=== PATIENT | female | born 1995 | race Caucasian/White ===

== ENCOUNTER → 2016-09-08 | Outpatient (CLI) | payer OTHER ==
[~2016-09-08] MED LIST: AMOX250C3 PO; AMX875 PO; PRENTAB26 PO; ZNTT/150 PO
[2016-09-08 18:16] LABS: URINE APPEARANCE TURBID (CLEAR); URINE BILIRUBIN NEG (NEG); URINE COLOR YELLOW; URINE EPITHELIAL CELL AUTO >30 /lpf (0-5); URINE NITRITE NEG (NEG); URINE PH 7.5 (4.5-7.5); URINE SPECIFIC GRAVITY 1.018 (1.000-1.030); UROBILINOGEN NEG (NEG)
[2016-09-08 18:42] LABS: MANUAL MICROSCOPIC REQUIRED? NO; REVIEW REQ? YES
== END | disposition home or self-care (01) ==
LOC: C.LABSPEC 17:40
PROVIDERS: ATTEND Obstetrics & Gynecology
DX: O09.299 Supervision of pregnancy with other poor reproductive or obstetric history, unspecified trimester (principal)

== ENCOUNTER → 2016-09-08 | Outpatient (CLI) | payer OTHER ==
[2016-09-08 17:34] LABS: HEMATOCRIT 31.5 % (37-47)
[2016-09-08 17:37] LABS: GTGD 50 Grams
== END | disposition home or self-care (01) ==
LOC: C.LAB1850 15:38
PROVIDERS: ATTEND Obstetrics & Gynecology
DX: O09.299 Supervision of pregnancy with other poor reproductive or obstetric history, unspecified trimester (principal)

== ENCOUNTER → 2016-11-11 | Outpatient (CLI) | payer OTHER | END | disposition home or self-care (01) | LOC: C.LABSPEC 17:31 | PROVIDERS: ATTEND Obstetrics & Gynecology | DX: Z34.03 Encounter for supervision of normal first pregnancy, third trimester (principal) ==

== ENCOUNTER 2016-12-06 10:30 | Inpatient (IN) | payer OTHER ==
[~2016-12-06] VITALS: Ht 157.5 cm; Wt 68.0 kg
[2016-12-06] MEDS ORDERED: ZNTT/150 PO (11:01)
[2016-12-06] MEDS ORDERED: PRENTAB26 PO (11:01)
[2016-12-06] MEDS ORDERED: AMOX250C3 PO (11:02)
[2016-12-06 11:04] VITALS: Ht 157.5 cm; Wt 68.0 kg
[2016-12-06] MEDS ORDERED: LACTATED RINGER'S 1000ML 1,000 ML IV PRN (11:52)
[2016-12-06 13:18] LABS: HEMATOCRIT 30.9 % (37-47); MEAN CELL VOLUME 80.5 fL (80-100); MEAN CORPUSCULAR HEMOGLOBIN 25.3 pg (25-34); MEAN CORPUSCULAR HGB CONC 31.4 g/dl (32-36); PLATELET COUNT 242 K/uL (130-400); PLT ESTIMATE NORMAL; RED BLOOD COUNT 3.84 M/uL (4.2-5.4); WHITE BLOOD COUNT 11.78 K/uL (4.8-10.8)
[2016-12-06] MEDS: LACTATED RINGER'S 1000ML 1,000 ML IV SCH ×2 (13:33→17:38)
[2016-12-06] MEDS ORDERED: BUPIVACAINE 0.25% 30 ML VIAL ONE (16:40)
[2016-12-06] MEDS ORDERED: FENTANYL CITRATE INJ 50 MCG/1 ML 2 ML VIAL ONE (16:40)
[2016-12-06] MEDS ORDERED: EpHEDrine SULFATE INJ 50 MG/ML AMP ONE (16:40)
[2016-12-06] MEDS ORDERED: FENTANYL 2MCG/ML ROPIV 1.25MG/ML 100ML BAG EPI ONE (16:41)
[2016-12-06] MEDS ORDERED: NALOXONE HCL INJ 1 MG in SODIUM CHLORIDE 0.9% 1000ML 1,000 ML IV PRN (17:37)
[2016-12-06] MEDS ORDERED: LACTATED RINGER'S 1000ML 500 ML IV PRN ×2 (17:37→18:26)
[2016-12-06] MEDS ORDERED: NALOXONE HCL INJ 0.4 MG/1 ML VIAL/CARP IV PRN (17:45)
[2016-12-06] MEDS ORDERED: NALBUPHINE HCL INJ 10 MG/ML AMP IV PRN (17:45)
[2016-12-06] MEDS ORDERED: DiphenhydrAMINE HCL 50 MG/ML VIAL IV PRN (17:45)
[2016-12-06] MEDS ORDERED: FENTANYL 2MCG/ML ROPIV 1.25MG/ML 100ML BAG EPI PRN (17:45)
[2016-12-06] MEDS ORDERED: EpHEDrine SULFATE INJ 50 MG/ML AMP IV PRN (17:45)
[2016-12-06] MEDS ORDERED: OXYTOCIN 30 UNITS/500ML NSS IV PRN (18:30)
[2016-12-07] MEDS: LACTATED RINGER'S 1000ML 1,000 ML IV SCH (00:05)
[2016-12-07] MEDS ORDERED: HYDROCORTISONE ACETATE 25 MG SUPP PR PRN (00:45)
[2016-12-07] MEDS ORDERED: SUPERCREAM 0.870 % 15GM JAR EXT PRN (00:45)
[2016-12-07] MEDS ORDERED: DIPHTHERIA/TETANUS/PERTUSSIS 0.5 ML SYR/VIAL IM. ONE (00:45)
[2016-12-07] MEDS ORDERED: LANOLIN OINT EXT PRN ×2 (00:45)
[2016-12-07] MEDS ORDERED: ACETAMINOPHEN/CODEINE 300/30MG TAB PO PRN ×2 (00:45)
[2016-12-07] MEDS ORDERED: BENZOCAINE 20% AER SPR 82.5 GM CAN EXT PRN (00:45)
[2016-12-07] MEDS ORDERED: MEASLES, MUMPS & RUBELLA VIRUS VIAL SQ. ONE (00:45)
[2016-12-07] MEDS ORDERED: OXYTOCIN 30 UNITS/500ML NSS IV PRN (00:45)
[2016-12-07] MEDS ORDERED: ACETAMINOPHEN 325 MG TAB PO PRN (00:45)
--- NOTE | 2016-12-07 02:59 | DELIVERY SUMMARY ---
DATE OF OPERATION: 12/07/2016 FINDINGS: A viable female infant with Apgars of 9 and 9. Baby delivered over a midline second-degree laceration. Cord gases, cord blood samples obtained. Placenta delivered spontaneously. Laceration repaired with 4-0 Vicryl in routine fashion. Estimated blood loss was 300 mL. LABOR NOTE: The patient is a 21-year-old 2, para 0, with an EDC of 12/02/2016, at 40-plus weeks gestational age, who presented to labor and delivery initially for evaluation of decreased movement and irregular contractions. The patient states that she did not feel like the baby had been moving as much throughout the morning, so she came to labor and delivery for evaluation. The patient's blood type A positive, rubella equivocal, GBS negative, hepatitis B negative, 1-hour Glucola x2 within normal limits. Negative third trimester beta-strep culture. Upon admission, the patient was 3-4 cm dilated, 80% effaced, and 0 station. Tracing was category 1-2. The patient ambulated, then anesthesia was consulted and an epidural was placed. Upon placement of the epidural, there had been minimal cervical change. Artificial rupture of membranes with clear fluid. Intrauterine pressure catheter was placed and Pitocin was initiated per induction protocol. Over the next 6 hours, the patient progressed to full dilatation, began her second stage. She pushed for approximately 2 hours, delivering the viable female infant with description as above. Cord was clamped and cut. Cord gases, cord blood samples obtained. Placenta delivered spontaneously. Estimated blood loss 300 mL. Sponge and needle count was correct. I attest to the content of the Intraoperative Record and any orders documented therein. Any exceptio ns are noted below.
[2016-12-07 03:05] VITALS: BP 130/85; PULSE 101; TEMP 37
[2016-12-07] MEDS: IBUPROFEN 600 MG TAB PO PRN ×3 (04:10→19:40)
--- NOTE | 2016-12-07 05:41 | Anesthesia Procedure Note ---
Anesthesia Epidural Removal Nt Date & Time December 07, 2016 at 05:40 Vital Signs Pain Intensity: 2.0 Vital Signs Past 12 Hours Date Time Temp Pulse Resp B/P Pulse Ox O2 Delivery O2 Flow Rate FiO2 12/07/16 03:10 Room Air 12/07/16 03:05 37.0 101 18 130/85 Notes Mental Status: alert / awake / arousable, participated in evaluation Nausea / Vomiting: adequately controlled Pain: adequately controlled Airway Patency, RR, SpO2: stable & adequate BP & HR: stable & adequate Hydration State: stable & adequate Neuraxial Anesthesia: was administered Anesthetic Complications: no major complications apparent, pt satisfied with anesthetic care Epidural: removed without complications, with tip intact
[2016-12-07] MEDS: RANITIDINE HCL 150 MG TAB PO SCH (08:00)
[2016-12-07] MEDS ORDERED: AMOXICILLIN 250 MG CAP PO SCH (08:00)
[2016-12-07 08:05] VITALS: BP 139/89; PULSE 82; TEMP 36.6
[2016-12-07] MEDS: FERROUS SULFATE 325 MG TAB PO SCH (08:16)
[2016-12-07] MEDS: PRENATAL VITAMIN TAB PO SCH (08:16)
[2016-12-07] MEDS: DOCUSATE SODIUM 100 MG CAP PO SCH ×2 (08:16→19:40)
[2016-12-07 11:30] VITALS: BP 134/87; PULSE 80; TEMP 36.9
[2016-12-07 15:40] VITALS: BP 133/89; PULSE 87; TEMP 36.4; O2SAT 98
[2016-12-07 16:10] VITALS: O2SAT 98
[2016-12-07] MEDS ORDERED: AMX875 PO (18:26)
[2016-12-07] MEDS: AMOXICILLIN 875 MG TAB PO SCH (19:40)
[2016-12-07 19:45] VITALS: BP 133/83; PULSE 90; TEMP 36.9
[2016-12-08] VITALS: BP 124/81; PULSE 93; O2SAT 98
[2016-12-08 06:25] LABS: HEMATOCRIT 24.9 % (37-47)
--- NOTE | 2016-12-08 07:24 | Progress Note ---
Subjective December 08, 2016. Subjective conversation w/ patient, physical exam Ambulation: ambulating normally Voiding: no voiding problems Passing Gas: Yes Diet Tolerance: Regular Diet Lochia: Moderate Feeding Type: Breast Feeding Review of Systems Constitutional: No problem reported Respiratory: No problem reported Cardiac: No problem reported Breast: No problem reported Abdomen: No problem reported Female : No problem reported Objective Vital Signs Date Time Temp Pulse Resp B/P Pulse Ox O2 Delivery O2 Flow Rate FiO2 12/08/16 00:00 98 Room Air 12/08/16 00:00 93 20 124/81 Room Air 12/07/16 19:45 36.9 90 20 133/83 Room Air 12/07/16 16:10 98 Room Air 12/07/16 15:40 36.4 87 16 133/89 98 Room Air 12/07/16 11:30 36.9 80 20 134/87 Room Air 12/07/16 08:05 36.6 82 18 139/89 Room Air 12/07/16 08:05 Room Air Physical Exam General Appearance: WELL-APPEARING, NO APPARENT DISTRESS Respiratory/Chest: no respiratory distress Cardiovascular: regular rate, rhythm Abdomen: non tender, soft Fundus: Firm Extremities: normal inspection Laboratory Results Last 24 Hours Test 12/08/16 04:44 Assessment and Plan Problem List Medical Problems: (1) Complete Status: Acute Post- Day#: 1 Continue Routine Care: PPD#1. Doing well. automotive services manager has seen patient and has no concerns. Continue routine care. Patient considering going home later today.
--- NOTE | 2016-12-08 07:27 | Discharge Instructions ---
Discharge Instructions Date of Service December 08, 2016. Admission Reason for Admission: R/O Labor Discharge Discharge Diagnosis / Problem: s/p vaginal delivery Discharge Goals Goal(s): Routine recovery after delivery Activity Recommendations Activity Limitations: per Instructions/Follow-up section . Instructions / Follow-Up Instructions / Follow-Up ACTIVITY RECOMMENDATIONS: * Gradual return to full activity over the next 2-3 weeks. * No lifting - nothing heavier than baby over the next 2-3 weeks. * Do not engage in vigorous exercise, sexual activity or sports until cleared by your physician. * Do not drive or operate any motorized equipment until cleared by your physician. * You may shower/bathe daily. MEDICATIONS: For discomfort or pain, you may use Acetaminophen (Tylenol), Ibuprofen (Advil), or Naproxen (Aleve) following the package directions. For constipation you may use Colace following the package directions. BREAST CARE: If you are not breast feeding: * Wear a supportive bra 24 hours a day for one to two weeks. * Avoid stimulating your breasts and nipples as much as possible during the first few weeks after delivery. * When taking a shower, have the warm water hit your back, not breasts. * When your breasts feel full, apply ice packs. Usually three to four times a day helps ease the discomfort. * Take a mild pain medication (Tylenol / Motrin) when you are uncomfortable. If breast feeding: * Use breast milk to lubricate nipples. Lansinoh cream may be used for sore nipples. You do not need to remove cream prior to breast feeding. If using a different brand of cream, check the label for directions regarding removal of cream prior to nursing. * Wear a supportive bra. * If having problems with breasts or breast feeding, call a client insights consultant or your health care provider. EPISIOTOMY CARE: After delivery, if you have an episiotomy (stitches), the following steps will ease discomfort and aid healing. * For the first 24 hours after delivery, place ice packs next to your episiotomy to help reduce swelling. * After the first 24 hour-period, sitz baths, either portable or in the tub, are suggested. A shower with a shower arm sprayed over the episiotomy may be comforting. * Karena care should be done after each voiding and bowel movement. Squirt warm water from a plastic bottle over the perineum (region of the body between the anus and urinary opening) and pat dry. * Use Dermoplast to ease discomfort. Shake container. [place] directly over the episiotomy. Place a Tucks on a clean sanitary pad next to your episiotomy. SPECIAL CARE INSTRUCTIONS: When you are discharged from the hospital, it is important for you to follow the instructions listed below: * During the first week at home, you should be able to care for yourself and your baby. In addition, the usual light household activities are encouraged. * Limit your activities to the way you feel. Do not try to clean the house or move furniture. Be sensible. * If you actively engage in sports and have done so up until the time of your delivery, you may resume these activities as soon as you feel able. This may take up to one month or even longer. Use good judgment. * Continue to take your vitamins for at least six weeks after the of your baby. * Your diet need not be limited unless you were on a special diet before your delivery. Breast-feeding mothers need around 2500 calories per day and at least 64-80 ounces of fluid per day (8 to 10 glasses). * You should eat foods from the four major food groups. Crash diets or fad diets are to be avoided. Eating lean meats, fresh fruits and vegetables, low-fat dairy products, high fiber foods and a regular exercise program, will help you get back to your pre- weight without putting your health at risk. * Constipation is sometimes a problem after delivery. Take a mild laxative as needed. If breast feeding, Milk of Magnesia is acceptable to use. You may use a suppository or Fleets enema if no episiotomy. * A daily shower or tub bath is suggested. Be sure to thoroughly and gently dry the perineum. * A bloody vaginal discharge will usually continue until around four weeks post . A small amount of bleeding may continue for as long as six weeks. Vaginal discharge changes from the bright red bleeding after delivery to pink then brownish and finally yellowish-pink before becoming white and disappearing. * Bleeding may increase with activity. Your first period may come in 4-8 weeks. If you are breast feeding, your period may be delayed even longer. * [place] (sex) can begin whenever both you and your partner feel comfortable and do not have any form of genital infection. It is recommended that you wait at least six weeks for internal and external healing to occur. If you have questions, please talk to your health care practitioner. A condom should be used to prevent infection and . * Foreplay, gentle intercourse and lubrication is very important the first several times to prevent pain. A water-based lubricant such as K-Y jelly or Astroglide may be used. * If you have RH negative blood and your baby is RH positive, you will receive RHOGAM by injection prior to discharge. The nurse will give you a card to keep with you that has the date and place that you received RHOGAM after delivery. * During your care, you had a Rubella screen done to check for the presence of rubella antibodies in your blood. If your test was negative, you will receive a Rubella vaccine prior to discharge. This vaccine may cause a fever, soreness at the injection site and flu-like symptoms. If these symptoms persist, notify your health care practitioner. is not advised for one month after a Rubella vaccine. * Verbalizes understanding of car seat law as reviewed with patient nursing. * Car Seat hand-out given and reviewed with patient by nursing. * Shaken baby information reviewed with patient by nursing. Call you doctor if: * Heavy bleeding (saturating several pads an hour) or passing clots the size of your fist. * A fever >101 degrees F (38.3 degrees C) on two occasions four hours apart and /or chills. * Unusual pain in the pelvic or vaginal areas. * "Baby Blues" lasting longer than two weeks. If you have any questions or concerns, call your health care practitioner at . FOLLOW UP VISIT: * Please call the office at to schedule a 6 week examination. It is important you keep this appointment. It is important for you to make arrangements for either yearly or twice yearly check-ups thereafter. Current Hospital Diet Patient's current hospital diet: Regular OB Diet Discharge Diet Recommended Diet: Regular OB Diet Pending Studies Studies pending at discharge: no Medical Emergencies . Who to Call and When: Medical Emergencies: If at any time you feel your situation is an emergency, please call 911 immediately. . Non-Emergent Contact Non-Emergency issues call your: Primary Care Provider, [place] Cutting Machine Operator . . "Provider Documentation" section prepared by Evelyn Arizmendi. . VTE Core Measure Inpt VTE Proph given/why not?: Treatment not indicated
[2016-12-08 08:00] VITALS: BP 143/90; PULSE 76; TEMP 36.9
[2016-12-08] MEDS: RANITIDINE HCL 150 MG TAB PO SCH (08:00)
[2016-12-08] MEDS: FERROUS SULFATE 325 MG TAB PO SCH (08:17)
[2016-12-08] MEDS: PRENATAL VITAMIN TAB PO SCH (08:17)
[2016-12-08] MEDS: AMOXICILLIN 875 MG TAB PO SCH (08:17)
[2016-12-08] MEDS: DOCUSATE SODIUM 100 MG CAP PO SCH (08:17)
[2016-12-08 08:25] VITALS: BP 119/76; PULSE 82
[2016-12-08 14:44] VITALS: BP_DIAS 76; PULSE 82; TEMP 36.9
[2016-12-08] MEDS ORDERED: BISACODYL 5 MG TABEC PO SCH (20:00)
== END 2016-12-08 14:50 | disposition home or self-care (01) | DRG 775 ==
LOC: C.LD 10:30 → C.OPB 10:30 → C.LD 11:53 → C.OPB 11:53 → C.OBG 12-07 03:08
PROVIDERS: ADMIT Obstetrics & Gynecology; ATTEND Obstetrics & Gynecology
PROC: 10907ZC Drainage of Amniotic Fluid, Therapeutic from Products of Conception, Via Natural or Artificial Opening (ICD-10-PCS; principal; 2016-12-07)
PROC: 10E0XZZ Delivery of Products of Conception, External Approach (ICD-10-PCS; principal; 2016-12-07)
PROC: 10H07YZ Insertion of Other Device into Products of Conception, Via Natural or Artificial Opening (ICD-10-PCS; principal; 2016-12-07)
PROC: 3E033VJ Introduction of Other Hormone into Peripheral Vein, Percutaneous Approach (ICD-10-PCS; principal; 2016-12-07)
DX: O48.0 Post-term pregnancy (principal); Z37.0 Single live birth; O99.334 Smoking (tobacco) complicating childbirth; O36.8130 Decreased fetal movements, third trimester, not applicable or unspecified; O70.1 Second degree perineal laceration during delivery; O76 Abnormality in fetal heart rate and rhythm complicating labor and delivery; F17.210 Nicotine dependence, cigarettes, uncomplicated; Z3A.40 40 weeks gestation of pregnancy

== ENCOUNTER → 2018-03-02 | Outpatient (CLI) | payer OTHER ==
[~2018-03-02] MED LIST changes: -AMOX250C3 PO; -AMX875 PO; +RANI150T85 PO; -ZNTT/150 PO
== END | disposition home or self-care (01) ==
LOC: C.LABSPEC 17:55
PROVIDERS: ATTEND Obstetrics & Gynecology
DX: Z11.3 Encounter for screening for infections with a predominantly sexual mode of transmission (principal)

== ENCOUNTER → 2018-03-02 | Outpatient (CLI) | payer OTHER | END | disposition home or self-care (01) | LOC: C.PAPS 09:23 | PROVIDERS: ATTEND Obstetrics & Gynecology | DX: Z01.419 Encounter for gynecological examination (general) (routine) without abnormal findings (principal) ==

== ENCOUNTER 2022-07-25 09:06 | Inpatient (IN) ==
[2022-07-25] MEDS ORDERED: PENICILLIN G POTASSIUM 6 MU in DEXTROSE 5% 250 ML IV STA (09:29)
[2022-07-25] MEDS ORDERED: OXYTOCIN 30 UNITS/500 ML BAG IV PRN ×2 (09:29→15:12)
[2022-07-25] MEDS ORDERED: LIDOCAINE 1% LOCAL 20 ML VIAL INFIL PRN (09:29)
[2022-07-25] MEDS: LACTATED RINGER'S 1,000 ML IV PRN ×2 (09:30→11:38)
[2022-07-25] MEDS ORDERED: ePHEDrine sulfate 50 MG/ML AMP ONE (09:52)
[2022-07-25] MEDS ORDERED: fentaNYL 2MCG/ML ROPIVACAINE 1.25MG/ML 100 ML BAG EPI ONE (09:53)
[2022-07-25] MEDS ORDERED: LIDOCAINE 2%/EPINEPHRINE 1:200,000 20 ML SDV ONE (09:53)
[2022-07-25] MEDS ORDERED: BUPIVACAINE 0.25% 30 ML VIAL ONE (09:53)
[2022-07-25] MEDS ORDERED: fentaNYL citrate 100 MCG/2 ML VIAL ONE (09:53)
[2022-07-25] MEDS ORDERED: SODIUM CHLORIDE 0.9% INJ 10 ML VIAL ONE (09:53)
[2022-07-25 10:00] LABS: Amphetamines+Metham, Urine Neg (Neg); Barbiturates, Urine Neg (Neg); Benzodiazepine, Urine Neg (Neg); Cocaine, Urine Neg (Neg); MDMA (Ecstacy), Urine Neg (Neg); Methadone, Urine Neg (Neg); Opiate, Urine Neg (Neg); Phencyclidine, Urine Neg (Neg)
--- NOTE | 2022-07-25 10:19 | History & Physical Report ---
Date of Service July 25, 2022 Assessment & Plan (1) Supervision of normal intrauterine in multigravida: (2) Normal labor: Plan Marie 27-year-old currently at 39 weeks 2 days gestational age presents in labor. course has been complicated by noncompliance with care. Patient has not been seen since 28 weeks gestational age. Will plan for social work following delivery due to poor compliance with care 1. Fetus: Cat 1 2. Labor: Active, AROM 3. GBS unknown 4. Vitals: WNL Admission and Anticipated Discharge Date Admission Date: July 25, 2022 History of Present Illness Primary Care Provider: HE PCP 27yo at 39w2d GA. Presents in labor. Has been noncompliant with care and has not had a visit since 28 weeks GA. Hx of prior . OB Labs: Blood Type A Positive 12/21/21 Antibody Screen NEGATIVE 12/21/21 Hemoglobin 13.6 g/dL (12.0-16.0) 12/21/21 Hematocrit 40.8 % (37-47) 12/21/21 Mean Corpuscular Volume 92.7 fL (80-100) 12/21/21 Platelet Count 259 K/uL (130-400) 12/21/21 Rubella IgG Antibody Non Immune (Immune) L 12/21/21 Rapid Plasma Reagin Nonreactive (Nonreactive) 12/21/21 Hepatitis B Surface Antigen. NON-REACTIVE (NON-REACTIVE) 12/21/21 Hepatitis C Antibody (EIA) NON-REACTIVE (NON-REACTIVE) 12/21/21 HIV (1&2) Ag and Ab Confirmation NON-REACTIVE (NON-REACTIVE) 12/21/21 Glucose 1 Hour 50 gm Load 92 mg/dl (70-130) 02/15/22 OB Optional Labs: Chlamydia trachomatis RNA NOT DETECTED (NOT DETECTED) 01/20/22 Neisseria gonorrhoeae RNA NOT DETECTED (NOT DETECTED) 01/20/22 Allergies Allergy/AdvReac Type Severity Reaction Status Date / Time azithromycin Allergy Unknown Verified 07/25/22 10:57 cat dander Allergy itch Verified 07/25/22 10:57 house dust Allergy itch Verified 07/25/22 10:57 Home Medications Medication Instructions Recorded Confirmed Type prenat.vits,aroldo,oxz-aapw-lgdae 1 tab PO DAILY 12/17/21 07/25/22 History oseltamivir 75 mg capsule (Tamiflu) 75 mg PO BID 5 days #10 caps 07/08/22 07/25/22 Rx Patient History Medical History (Updated 07/25/22 @ 12:57 by Tex Sawant MD) No pertinent past medical history Surgical History (Updated 07/25/22 @ 10:54 by Lluvia Abbasi RN) History of removal of ovarian cyst 2013 No pertinent past surgical history [place] teeth removed 2018 Family History Father , Age 30 in 2003 Myocardial infarction Dyslipidemia Brother Glycogen storage disease Other Congenital hereditary muscular dystrophy Diabetes Heart disease Hypertension Liver disease Osteoporosis Social History (Updated 12/17/21 @ 17:12 by Sarah Traore) Smoking Status: Current every day smoker Tobacco Type: Cigarettes Cigarettes Per Day: 5 per day; Second Hand Exposure: No; Do You Dip or Chew Tobacco: No; Hx Alcohol Use: No Hx Substance Use: No Preferred Language: Kiswahili Inner Tube Cutter Required: No Beliefs That Will Affect Care: None marital status: Single marital status details: Corwin (33) [phone] Current Living Situation: Significant Other Current Living Situation Comment: lives wi th FOB and daughter. 2 dogs. current occupational status: employed current occupation: [employer]. Feels Safe at Home: Yes Safety Concerns: Feels Safe At This Time Physical Exam Respiratory: normal respiratory effort, lungs clear to auscultation Cardiovascular: RRR, no murmur, no edema Genitourinary: normal external appearance OB Exam Abdomen: + vertex Manual OB Exam: + cervical dilation 6 cm, + cervical effacement 90%, + station 0 and + amniotic fluid clear OB Exam Monitor Tracing: + external FHT monitor used, + external uterine monitor used, + category I and + normal FHT variability; no early decelerations present, no late decelerations present and no variable decelerations Results & Data ([facility]) Vital Signs (Past 12 Hours) Vital Signs Pulse BP 07/25/22 09:17 120 H 109/71 Code Status & VTE Plan VTE Prophylaxis Plan VTE Prophylaxis will be ordered: No Reason for no VTE drug order: Treatment not indicated Coding Level of Care Code None Diagnoses Supervision of normal intrauterine in multigravida Z34.80 Normal labor O80; Z37.9
[2022-07-25 10:20] LABS: Hematocrit (blood only) 31.1 % (34.1-44.9); Hemoglobin 10.4 g/dl (12.0-16.0); Mean Corpuscular Hemoglobin 28.8 pg (25.0-34.0); Mean Corpuscular Hgb Conc 33.4 g/dL (32.0-36.0); Mean Corpuscular Volume 86.1 fL (80.0-100.0); Mean Platelet Volume 12.4 fL (9.4-12.3); Platelet Count 192 K/uL (130-400); RDW Coefficient of Variation 12.9 % (11.5-14.5); RDW Standard Deviation 40.5 fL (36.4-46.3); Red Blood Count 3.61 M/uL (3.93-5.22); White Blood Count 15.33 K/ul (4.8-10.8)
--- NOTE | 2022-07-25 10:50 | Anesthesiology Consultation ---
Date of Service July 25, 2022 Assessment & Plan (1) Encounter for pre-operative examination: Chart Review Chart Review: Acceptable Risk for Labor Epidural History Height/Weight Height: 5 ft 2 in Weight: 64.704 kg Allergies Allergy/AdvReac Type Severity Reaction Status Date / Time azithromycin Allergy Unknown Verified 05/11/22 10:32 cat dander Allergy Verified 05/11/22 10:32 house dust Allergy Verified 05/11/22 10:32 Medications Home Medications Medication Instructions Recorded Confirmed Last Taken prenat.vits,aroldo,bzn-uxbp-ymodo 1 tab PO DAILY 12/17/21 05/11/22 Unknown oseltamivir 75 mg capsule (Tamiflu) 75 mg PO BID 5 days #10 caps 07/08/22 Unknown Past Medical History Medical History (Updated 07/25/22 @ 10:50 by Milan Alegria MD) No pertinent past medical history Past Family History Family History Father , Age 30 in 2003 Myocardial infarction Dyslipidemia Brother Glycogen storage disease Other Congenital hereditary muscular dystrophy Diabetes Heart disease Hypertension Liver disease Osteoporosis Past Surgical History Surgical History No pertinent past surgical history Social History Smoking Status: Current every day smoker tobacco type: cigarettes Smoking cigarettes per day: 5 per day Do You Dip or Chew Tobacco: No Hx Alcohol Use: No Alcohol type: hard liquor alcohol intake frequency: other Alcohol Intake Frequency Comment: Patient states she last drank in October before knowing of . Hx Substance Use: No substance use type: does not use Physical Exam Vital Signs Last Vital Signs Temp 36.7 C 07/25/22 09:50 Pulse 84 07/25/22 10:47 Resp 18 07/25/22 09:50 BP 109/71 07/25/22 09:50 Pulse Ox 97 07/25/22 10:47 Testing Laboratory Results 07/25/22 09:51
[2022-07-25] MEDS ORDERED: ePHEDrine sulfate 50 MG/ML AMP IV PRN (11:18)
[2022-07-25] MEDS ORDERED: NALOXONE HCL 1 MG in SODIUM CHLORIDE 0.9% 1000ML 1,000 ML IV PRN (11:18)
[2022-07-25] MEDS ORDERED: fentaNYL 2MCG/ML ROPIVACAINE 1.25MG/ML 100 ML BAG EPI PRN (11:18)
[2022-07-25] MEDS ORDERED: ONDANSETRON INJ 2 MG/ML 2 ML VIAL IV PRN (11:18)
[2022-07-25] MEDS ORDERED: NALOXONE HCL 0.4 MG/1 ML VIAL/CARP IV PRN (11:18)
[2022-07-25] MEDS ORDERED: PENICILLIN G POTASSIUM 3 MU in DEXTROSE 5% 100 ML IV PRN (12:30)
[2022-07-25] MEDS ORDERED: HYDROCORTISONE ACETATE 25 MG SUPP PR PRN (15:12)
[2022-07-25] MEDS ORDERED: BENZOCAINE 20% AER SPR 82.5 GM CAN EXT PRN (15:12)
[2022-07-25] MEDS ORDERED: DIPHTHERIA/TETANUS/PERTUSSIS 0.5 ML SYR/VIAL IM ONE (15:12)
[2022-07-25] MEDS ORDERED: bisacodyL 10 MG SUPP PR PRN (15:12)
[2022-07-25] MEDS ORDERED: ACETAMINOPHEN 325 MG TAB PO PRN (15:12)
--- NOTE | 2022-07-25 15:39 | Anesthesia Procedure Note ---
Date of Service July 25, 2022 Anesthesia Post Epidural Note Vital Signs Vital Signs: Temp Pulse Resp BP Pulse Ox 37.0 C 65 18 126/65 95 07/25/22 13:45 07/25/22 15:36 07/25/22 13:45 07/25/22 15:36 07/25/22 15:22 Notes Mental Status: alert / awake / arousable and participated in evaluation Nausea / Vomiting: adequately controlled Pain: adequately controlled Airway Patency, RR, SpO2: stable & adequate BP & HR: stable & adequate Hydration State: stable & adequate Neuraxial Anesthesia: was administered and sensory block is resolving Anesthetic Complications: no major complications apparent Epidural: Removed without complications and With tip intact
--- NOTE | 2022-07-25 15:43 | Delivery Summary ---
DATE OF SERVICE: 07/25/2022 PROCEDURE: Normal spontaneous vaginal delivery. SURGEON: Tex Sawant MD. PREOPERATIVE DIAGNOSES: 1. Single intrauterine at term. 2. Labor. POSTOPERATIVE DIAGNOSES: 1. Single intrauterine at term. 2. Labor. 3. Status post procedure. ESTIMATED BLOOD LOSS: 200 mL DRAINS: Straight cath at the completion of the case. URINE OUTPUT: Per straight cath. COMPLICATIONS: None. FINDINGS: Viable with weight and Apgars pending. INDICATIONS: The patient is a 27-year-old G3, P1-0-1-1, admitted at 39 weeks 2 days' gestational age , in labor. The patient was found to be 6 cm dilated at initial evaluation. She underwent artificial rupture of membranes, received an epidural for anesthesia and progressed to complete-complete, +2 st ation, pushed for approximately 20-30 minutes to achieve delivery. DESCRIPTION OF PROCEDURE: The patient progressed to 10 cm dilated, 100% effaced, positive 2 station, pushed over intact perineum with epidural anesthesia and delivered a viable with weight and Apgars as noted above. Head of the delivered in RAKAN position, restituted to left transverse. No nuchal cord was noted. Body and shoulders quickly followed. was noted to be vigorous s oon after delivery and 1 minute delayed cord clamping was initiated. Cord was then double clamped an d cut. Attention was then turned to delivery of placenta, which delivered with intact 3-vessel cord, gentle cord traction. On inspection of the perineum, vagina, cervix, there was noted to be no lacer ations. Sponge and instrument counts were correct at the completion of the case. Both mother and ne ruth stable in the immediate post-delivery period. Job ID: [id number]
[2022-07-25] MEDS: DOCUSATE SODIUM 100 MG CAP PO SCH (20:37)
[2022-07-25] MEDS: IBUPROFEN 600 MG TAB PO PRN (23:04)
[2022-07-26] MEDS: IBUPROFEN 600 MG TAB PO PRN ×3 (03:42→15:42)
--- NOTE | 2022-07-26 06:47 | Obstetrical Progress Note ---
Date of Service <Mary HamiltonAnne-Marie Grover DO - Last Filed: 07/26/22 07:04> July 26, 2022 Assessment & Plan <Mary HamiltonAnne-Marie Grover DO - Last Filed: 07/26/22 07:04> (1) care and examination: Patient is PPD 1 s/p and doing well. - Eating well, voiding well, ambulating well - Vitals reviewed and within normal limits - Pain well controlled with analgesics - OOB, ambulation, diet progression as tolerated - Blood type: A+, GBS unknown (treated with penicillin during delivery), rubella non-immune (MMR ordered) - Plan to discharge today - After discharge, 6 week follow up with Dr. Sawant <Tex Sawant MD - Last Filed: 07/27/22 17:03> (1) care and examination: Subjective <Mary LopezDO dot - Last Filed: 07/26/22 07:04> Patient is a 27 yo female who is now PPD #1 following spontaneous vaginal delivery at 39+2 weeks. Reports feeling well this morning. She endorses abdominal cramping and 3-5/10 pain well managed on analgesics. Voiding without issue. Tolerating regular meals overnight and able to ambulate some. Persistent lochia with some improvement this morning. Currently bottle feeding formula feeding with plans to pump. Review of Systems Denies fever, chills, sweats. Denies SOB, difficulty breathing, chest pain, palpitations, and chest pressure. Denies breast pain. Denies dysuria. Denies headache or changes in vision. Physical Exam <Mary Marie Grover DO - Last Filed: 07/26/22 07:04> General: Alert and oriented. No acute distress. CV: Regular rate and rhythm. No murmurs. Respiratory: CTA bilaterally. No rhonchi, wheezes, or crackles. No increased work of breathing. Abdomen: Positive bowel sounds. Soft, nontender, non distended. Uterus: Fundus firm and palpable 2 cm below the umbilicus. Lower extremities: Mild bilateral nonpitting LE edema. No deep calf pain. Results & Data ([facility]) <Mary Grover DO - Last Filed: 07/26/22 07:04> Vital Signs (Past 12 Hours) Vital Signs Temp Pulse Resp BP BP Pulse Ox O2 Del Method 07/26/22 03:30 36.8 C 63 16 94/52 L 97 Room Air 07/25/22 23:00 68 16 113/71 98 Room Air 07/25/22 19:50 36.8 C 70 16 125/72 98 Room Air <Tex Sawant MD - Last Filed: 07/27/22 17:03> Co-Signing Physician Notes patient seen with resident and agree with the above findings and plan. Stable for discharge Resident Activity Tracking <Mary Grover DO - Last Filed: 07/26/22 07:04> Resident Involvement: Resident Care Provided Care Provided: OB Delivery
[2022-07-26] MEDS ORDERED: MEASLES, MUMPS & RUBELLA VIRUS VIAL SQ ONE (07:02)
[2022-07-26] MEDS ORDERED: FERROUS SULFATE 325 MG TAB PO SCH (08:00)
[2022-07-26] MEDS ORDERED: PRENATAL VITAMIN 1 TAB PO SCH (08:00)
[2022-07-26] MEDS: DOCUSATE SODIUM 100 MG CAP PO SCH (08:23)
[2022-07-26] MEDS ORDERED: bisacodyL 5 MG TABEC PO SCH (20:00)
== END 2022-07-26 16:05 | disposition home or self-care (01) | DRG 807 ==
LOC: OPB 09:06 → 4S1 09:07 → 4E2 18:05
DX: Z37.0 Single live birth; Z3A.39 39 weeks gestation of pregnancy; O80 Encounter for full-term uncomplicated delivery

== ENCOUNTER 2025-02-20 07:47 | Inpatient (IN) ==
[2025-02-20] MEDS ORDERED: LIDOCAINE 1% LOCAL 20 ML VIAL INFIL PRN (08:43)
--- NOTE | 2025-02-20 08:48 | History & Physical Report ---
Date of Service February 20, 2025 Assessment & Plan (1) Supervision of normal intrauterine in multigravida: Plan: Admit to L&D. Patient strongly desires epidural - will obtain labs, and attempt to get this in time before delivery. Admission and Anticipated Discharge Date Admission Date: February 20, 2025 History of Present Illness Chief Complaint: contractions Primary Care Provider: NO PCP 29yo @ 39 11/05, presented to L&D with contractions. Current every day vaping Noncompliant - does not attend appts as scheduled. GERD *TUMS Hep B non immune - discussed vaccine at PCP Rubella non immune - MMR Allergies Allergy/AdvReac Type Severity Reaction Status Date / Time azithromycin Allergy Severe Difficulty Verified 02/13/25 15:53 Breathing cat dander Allergy itch Verified 02/13/25 15:53 house dust Allergy itch Verified 02/13/25 15:53 Home Medications Medication Instructions Recorded Confirmed Type cholecalciferol (vitamin D3) PO 08/17/24 02/13/25 History uxxbjqragbvm-lwol-hbkypuav PO 08/17/24 02/13/25 History Patient History Medical History Miscarriage Varicella vaccination Chlamydia Ovarian cyst Surgical History [place] teeth removed 2018 History of removal of ovarian cyst 2013 Family History Father Myocardial infarction Dyslipidemia Brother Glycogen storage disease Other Congenital hereditary muscular dystrophy Diabetes Heart disease Hypertension Liver disease Osteoporosis Social History Smoking Status: Current every day smoker Tobacco Type: Cigarettes and E-cigarettes / Vaping Cigarettes Per Day: 1/2 pack; Second Hand Exposure: Yes; Do You Dip or Chew Tobacco: No; Tobacco Cessation Education Requested by Patient: No Hx Alcohol Use: No Hx Substance Use: No Preferred Language: Dominican Communication Ability: Effective 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 Other Information That Helps Us Care for You: No Feels Safe at Home: Yes Safety Concerns: Feels Safe At This Time Assistive Devices: None Review of Systems All systems reviewed & are unremarkable except as noted in HPI & below Physical Exam Physical Exam: FHT difficult to trace d/t patient's pain and inability to tolerate monitor SVE by RN - approx 7cm with bulging bag [place] Q 2-3 Constitutional: WD/WN, vitals as above Respiratory: normal respiratory effort, lungs clear to auscultation no resp iratory distress Cardiovascular: Rate/Rhythm: regular rate and regular rhythm Gastrointestinal (Abdomen): Inspection/Auscultation: abdomen normal to inspection Percussion/Palpation: abdomen soft; abdomen nontender Gravid. No s/s chorio or abruption. Skin: no rashes, warm and dry Psychiatric: A+Ox3, euthymic affect Results & Data Vital Signs (Past 12 Hours) Vital Signs Temp Pulse Resp BP Pulse Ox 02/20/25 08:43 108 H 100 02/20/25 08:38 82 99 02/20/25 08:33 70 97 02/20/25 08:28 69 98 02/20/25 08:25 86 116/85 02/20/25 08:23 70 98 02/20/25 08:16 36.6 C 72 16 116/85 98 Coding Level of Care Code None Diagnoses Supervision of normal intrauterine in multigravida Z34.80
[2025-02-20 09:09] LABS: Hematocrit (blood only) 32.5 % (37.0-47.0); Hemoglobin 10.7 g/dl (12.0-16.0); Mean Corpuscular Hemoglobin 27.6 pg (25.0-34.0); Mean Corpuscular Volume 84.0 fL (80.0-100.0); Platelet Count 193 K/uL (130-400); RDW Standard Deviation 40.1 fL (36.4-46.3); Red Blood Count 3.87 M/uL (4.20-5.40); White Blood Count 14.81 K/ul (4.8-10.8)
[2025-02-20] MEDS: LACTATED RINGER'S 1,000 ML IV PRN (09:10)
[2025-02-20] MEDS: LIDOCAINE 2%/EPINEPHRINE 1:200,000 20 ML PF ONE (09:30)
[2025-02-20] MEDS: BUPIVACAINE 0.25% PF 30 ML VIAL ONE (09:35)
[2025-02-20 09:45] LABS: Amphetamines+Metham, Urine Neg (Neg); MDMA (Ecstacy), Urine Neg (Neg); Marijuana, Urine Neg (Neg)
--- NOTE | 2025-02-20 09:46 | Anesthesiology Consultation ---
Date of Service February 20, 2025 Assessment & Plan Chart Review Chart Review: Acceptable Risk for Labor Epidural Consults Requested none History Height/Weight Height: 5 ft 2 in Weight: 62.142 kg Allergies Allergy/AdvReac Type Severity Reaction Status Date / Time azithromycin Allergy Severe Difficulty Verified 02/13/25 15:53 Breathing cat dander Allergy itch Verified 02/13/25 15:53 house dust Allergy itch Verified 02/13/25 15:53 Medications Home Medications Medication Instructions Recorded Confirmed Last Taken cholecalciferol (vitamin D3) PO 08/17/24 02/13/25 Unknown brglioafwdux-lebc-cmhndarf PO 08/17/24 02/13/25 Unknown Active Medications Generic Name Dose Route Start Last Admin Trade Name Freq PRN Reason Stop Dose Admin Lactated Ringer's 1,000 mls @ 125 mls/hr 02/20/25 08:43 02/20/25 09:10 Lr IV 02/22/25 08:42 999 mls/hr .Q8H PRN Administration L&D Protocol Protocol Past Medical History Medical History Miscarriage Varicella vaccination Chlamydia Ovarian cyst Past Family History Family History Father Myocardial infarction Dyslipidemia Brother Glycogen storage disease Other Congenital hereditary muscular dystrophy Diabetes Heart disease Hypertension Liver disease Osteoporosis Past Surgical History Surgical History [place] teeth removed 2019 History of removal of ovarian cyst 2014 Social History Smoking Status: Current every day smoker tobacco type: cigarettes Smoking cigarettes per day: 1/2 pack Do You Dip or Chew Tobacco: No Hx Alcohol Use: No Alcohol type: hard liquor alcohol intake frequency: other Hx Substance Use: No substance use type: does not use Physical Exam Vital Signs Last Vital Signs Temp 36.6 C 02/20/25 08:16 Pulse 79 02/20/25 09:43 Resp 16 02/20/25 08:16 BP 100/55 L 02/20/25 09:40 Pulse Ox 100 02/20/25 09:43 Testing Laboratory Results 02/20/25 08:54
[2025-02-20] MEDS ORDERED: LIDOCAINE 2%/EPINEPHRINE 1:200,000 20 ML PF EPI STA (09:47)
[2025-02-20] MEDS ORDERED: SODIUM CHLORIDE 0.9% PF INJ 10 ML VIAL EPI STA (09:47)
[2025-02-20] MEDS ORDERED: SODIUM CHLORIDE 0.9% PF INJ 10 ML VIAL EPI PRN (09:47)
[2025-02-20] MEDS ORDERED: LIDOCAINE 2% MPF LOCAL 5 ML VIAL EPI PRN (09:47)
[2025-02-20] MEDS ORDERED: NALBUPHINE HCL INJ 10 MG/ML AMP IV PRN (09:47)
[2025-02-20] MEDS ORDERED: diphenhydrAMINE 50 MG/ML VIAL IV PRN (09:47)
[2025-02-20] MEDS ORDERED: BUPIVACAINE 0.25% PF 30 ML VIAL EPI PRN (09:47)
[2025-02-20] MEDS ORDERED: ROPIVACAINE 0.5% PF 5 MG/ML 20 ML VIAL EPI PRN (09:47)
[2025-02-20] MEDS ORDERED: NALOXONE HCL 1 MG in SODIUM CHLORIDE 0.9% 1,000 ML IV PRN (09:47)
[2025-02-20] MEDS ORDERED: NALOXONE HCL 0.4 MG/1 ML VIAL/CARP IV PRN (09:47)
[2025-02-20] MEDS ORDERED: BUPIVACAINE 0.25% PF 30 ML VIAL EPI STA (09:47)
[2025-02-20] MEDS: fentANYL 2 MCG/ML BUPIVacaine 0.125%-NSS 100ML BAG EPI PRN (09:56)
--- NOTE | 2025-02-20 10:12 | Labor Progress Brief Note ---
Date of Service February 20, 2025 Subjective Comfortable with epidural. FHT Cat 1 [place] Q 2 SVE per RN 8-9/90/0 to +1 station. Continue labor. Assessment & Plan Admission and Anticipated Discharge Date Admission Date: February 20, 2025 Results & Data Vital Signs (Past 12 Hours) Vital Signs Temp Pulse Resp BP Pulse Ox 02/20/25 10:08 68 99 02/20/25 10:07 82 102/58 L 02/20/25 10:03 76 100 02/20/25 10:01 86 100/56 L 02/20/25 09:59 16 02/20/25 09:59 36.6 C 79 16 105/57 L 02/20/25 09:58 80 100 02/20/25 09:54 101 H 93 02/20/25 09:53 103 H 100 02/20/25 09:51 146 H 134/100 02/20/25 09:48 80 100 02/20/25 09:46 91 H 99/60 L 02/20/25 09:45 16 02/20/25 09:45 36.6 C 16 02/20/25 09:43 79 100 02/20/25 09:40 86 100/55 L 02/20/25 09:38 75 100 02/20/25 09:33 73 97 02/20/25 09:31 86 125/60 02/20/25 09:28 83 100 02/20/25 09:23 79 99 02/20/25 09:18 66 98 02/20/25 09:13 72 97 02/20/25 09:08 71 97 02/20/25 09:03 83 98 02/20/25 08:58 108 H 99 02/20/25 08:53 118 H 99 02/20/25 08:48 73 98 02/20/25 08:43 108 H 100 02/20/25 08:38 82 99 02/20/25 08:33 70 97 02/20/25 08:28 69 98 02/20/25 08:25 86 116/85 02/20/25 08:23 70 98 02/20/25 08:16 36.6 C 72 16 116/85 98 Coding Level of Care Code None
[2025-02-20] MEDS: OXYTOCIN 30 UNITS/NSS 30 UNITS/500 ML BAG IV PRN (11:57)
--- NOTE | 2025-02-20 11:57 | Delivery Summary ---
Vaginal Delivery Summary Date of Service February 20, 2025 Vaginal Delivery Summary [facility] Vaginal Delivery Summary: Pre-delivery diagnoses: 29yo @ 39 /, spontaneous labor Post-delivery diagnoses: same Procedure: spontaneous vaginal delivery Surgeon: Evelyn Arizmendi DO Complications: none Findings: Viable male . Apgars: 8/9 . Weight pending, please see nursery records Estimated QBL: 100cc Description of delivery: The patient progressed to complete with epidural anesthesia. She then began to push. She spontaneously vaginally delivered a viable from the cephalic presentation. The head delivered in RAKAN position. Nuchal cord x 1, easily reduced. The anterior shoulder delivered, followed by the posterior shoulder, followed by the body. The baby was placed on mother's abdomen and a spontaneous cry was heard. Delayed cord clamping was employed, and the cord was doubly clamped and cut. Cord blood was obtained. The placenta was delivered spontaneously intact with a 3-vessel cord. The uterus and vagina were swept of clots and debris. IV pitocin was given. The uterus became firm. The cervix, vagina, and perineum were inspected and no lacerations were noted. Excellent hemostasis was observed. The mother and baby are recovering in stable and good condition in the room. Sponge and instrument counts were correct x 2. Evelyn Arizmendi DO [facility] Vaginal Delivery Charge Vaginal Delivery Codes: 25893 global code for the antepartum, delivery, and post- Delivery Type Details: [facility]
[2025-02-20] MEDS ORDERED: OXYTOCIN 30 UNITS/NSS 30 UNITS/500 ML BAG IV PRN (12:03)
[2025-02-20] MEDS ORDERED: ACETAMINOPHEN 325 MG TAB PO PRN (12:03)
[2025-02-20] MEDS ORDERED: BENZOCAINE 20% SPRY 85 APPLN/85 GM CAN EXT PRN (12:03)
[2025-02-20] MEDS ORDERED: HYDROCORTISONE ACETATE 25 MG SUPP PR PRN (12:03)
[2025-02-20] MEDS: DIPHTHER/TETAN/PERTUS Vaccine (Tdap, Adol/Adult) 0.5mL IM ONE (13:24)
[2025-02-20] MEDS: SODIUM CHLORIDE 0.9% PF INJ 10 ML VIAL ONE (13:24)
[2025-02-20] MEDS: fentANYL 2 MCG/ML BUPIVacaine 0.125%-NSS 100ML BAG ONE (13:24)
--- NOTE | 2025-02-20 13:26 | Anesthesia Procedure Note ---
Date of Service February 20, 2025 Anesthesia Post Epidural Note Vital Signs Vital Signs: Temp Pulse Resp BP Pulse Ox O2 Del Method 36.7 C 74 16 106/61 97 Room Air 02/20/25 12:09 02/20/25 13:23 02/20/25 12:09 02/20/25 13:13 02/20/25 13:23 02/20/25 12:09 Pain Intensity Lower Abdomen: Pain Intensity: 10 Notes Mental Status: alert / awake / arousable Nausea / Vomiting: adequately controlled Pain: adequately controlled Airway Patency, RR, SpO2: stable & adequate BP & HR: stable & adequate Hydration State: stable & adequate Neuraxial Anesthesia: was administered and sensory block is resolving Anesthetic Complications: no major complications apparent and Pt Satisfied with anesthetic care Epidural: Removed without complications and With tip intact
[2025-02-20] MEDS: IBUPROFEN 600 MG TAB PO PRN (16:48)
[2025-02-20] MEDS: DOCUSATE SODIUM 100 MG CAP PO SCH (20:19)
[2025-02-21 02:35] VITALS: O2SAT 96
[2025-02-21 06:09] LABS: Hematocrit (blood only) 28.3 % (37.0-47.0); Hemoglobin 9.0 g/dl (12.0-16.0)
--- NOTE | 2025-02-21 06:29 | Obstetrical Progress Note ---
Date of Service February 21, 2025 Assessment & Plan (1) examination following vaginal delivery: Plan Marie Gallegos is a 29 y/o post- day 1 s/p . Feels well today. Vital signs stable Continue post- care Encourage ambulation and Pain controlled with ibuprofen Hgb stable Discharge home today, follow up with Dr. Arizmendi in 6 weeks. Admission and Anticipated Discharge Date Admission Date: February 20, 2025 Anticipated date of discharge: 02/21/25 Supervising Physician Co-Signing Physician Notes Resident Physician Supervision Note: I was present with Dr. Medina during the history and exam. I discussed the case with the resident and agree with the findings and plan as documented in the note. Any exceptions or clarifications are listed here: PPD#1 doing well, DC instructions, 6w PP followup. Documented By: Evelyn Arizmendi, Subjective Marie Gallegos is a 29 y/o post- day 1 s/p . Ambulation: ambulating normally Voiding: no voiding problems Passing Gas:: Yes Diet Tolerance:: regular diet Lochia:: Small Feeding Type:: bottle feeding Current Pain Level: Resting comfortably this AM in NAD. Denies BOWDEN, CP, SOB, N/V/D, LE pain/swelling. Review of Systems Review of Systems: All systems reviewed & are unremarkable except as noted in HPI & below Physical Exam Physical Exam: General: patient resting comfortably, NAD, non-toxic in appearance, AA&O x 4, answers questions appropriately. Skin: warm, dry, intact HEENT: NC/AT, anicteric sclera, conjunctiva without injection, moist mucus membranes. Heart: +S1/S2, regular, no m/r/g Lungs: equal air entry bilaterally, no rales/rhonchi/wheezes Abd: +BS, soft, NT/ND, uterine fundus firm below umbilicus,. Ext: warm, no clubbing/cyanosis or edema, Zelda's neg. Neuro: nonfocal, patient AA&O x 4, speech intact, no facial droop, moving all extremities on command. Constitutional: WD/WN, vitals as above Results & Data Vital Signs (Past 12 Hours) Vital Signs Temp Pulse Resp BP Pulse Ox O2 Del Method 02/21/25 02:25 36.9 C 59 L 16 130/76 96 Room Air 02/20/25 22:41 36.8 C 64 18 117/70 99 Room Air 02/20/25 19:45 37.0 C 71 16 109/61 98 Room Air
[2025-02-21] MEDS: PRENATAL VITAMIN 1 TAB PO SCH (08:12)
[2025-02-21] MEDS: MEASLES, MUMPS & RUBELLA VIRUS VACCINE (MMR) 0.5ML VIAL SQ ONE (12:08)
[2025-02-21 12:37] VITALS: BP 107/64; PULSE 70; RESP 18; TEMP 98.6
== END 2025-02-21 15:45 | disposition home or self-care (01) | DRG 807 ==
LOC: EDCLIBED → OPB 07:47 → 4S1 07:50 → 4E2 15:10